=== PATIENT | female | born 1955 | race Caucasian/White ===

== ENCOUNTER 2024-10-03 19:48 | Emergency (ER) | payer MEDICAID ==
[~2024-10-03] VITALS: Ht 162.6 cm; Wt 68.8 kg
[~2024-10-03 19:48] MED LIST: ASPI-1264 PO; LEVO100T PO
[2024-10-03 19:55] VITALS: TEMP 98
--- NOTE | 2024-10-03 20:41 | Physician Documentation ---
History of Present Illness ~ Chief Complaint: Allergic Reaction Stated Complaint: ALLERGIC REACTION Time Seen by MD: 20:17 Medication Reconciliation Allergies: Coded Allergies: Penicillins (Verified Allergy, Severe, RASH,ITCH,SWELLING PAIN SOB, 11/29/15) diphenhydramine (Verified Adverse Reaction, Unknown, NAUSEA HEADACHE DIZZY, 11/29/15) Scheduled Aspirin* (Aspirin*), 325 MG PO Q24H@0830 Levothyroxine Sodium (Synthroid), 1 TAB PO DAILY, (Reported) Physical Exam Vital Signs: Temperature: 98.0, Heart Rate: 86, Respiratory Rate: 16, BP: 149/92, Pulse Oximetry: 97, Weight: 68.800 Oxygen Flow Rate: 0 Progress Results/Orders Results/Orders Vital Signs 10/03/24 19:55 Temp 98.0 Pulse 86 Resp 16 B/P (MAP) 149/92 Pulse Ox 97 O2 Flow Rate 0 Medical Decision Making Findings This patient presents with symptoms running for an allergic reaction per patient. Presentation not consistent with acute anaphylaxis (lack of pulmonary, dermatologic, cardiovascular or GI symptoms, lack of hypotension or exposure to known allergen), angioedema, serum sickness (no recent drug exposure, lacks fevers, arthralgias). No evidence of airway compromise or shock at this time. Patient improved spontaneously before arrival to the emergency department without any interventions. No need for epinephrine, steroids or a 22 blockers at this time. Patient will follow up with her primary care provider. He will return to the emergency department if the symptoms return or she has any additional concerning symptoms that we discussed here today. Differential Dx:Considerations: Include: Anaphylaxis, Angioedema, Bronchospasm, Contact dermatitis, Drug reaction, Hypotension, Latex allergy, Renal failure, Respiratory failure, Shock, Urticaria, Other Departure Disposition: 01 HOME / SELF CARE / HOMELESS Impression: Primary Impression: Resolved erythema Additional Instructions: This patient presents with symptoms running for an allergic reaction per patient. Presentation not consistent with acute anaphylaxis (lack of pulmonary, dermatologic, cardiovascular or GI symptoms, lack of hypotension or exposure to known allergen), angioedema, serum sickness (no recent drug exposure, lacks fevers, arthralgias). No evidence of airway compromise or shock at this time. Patient improved spontaneously before arrival to the emergency department without any interventions. No need for epinephrine, steroids or a 22 blockers at this time. Patient will follow up with her primary care provider. She will return to the emergency department if the symptoms return or she has any additional concerning symptoms that we discussed here today, I return of redness swelling difficulty breathing, difficulty swallowing,lightheadedness, dizziness, or any other concerning symptoms that we discussed here today. Referrals: NO PRIMARY CARE PROVIDER (PCP) Education Educated: Patient Educated regarding: diagnosis, treatment, need for follow up Signature Scribe Signature: A Attestation: Scribed for Lisa Wyman by MICHELE Flores . 10/03/24 20:41 LISA WYMAN Oct 03, 2024 20:41
[2024-10-03 20:44] VITALS: BP 145/90; PULSE 84; RESP 18; O2SAT 99
== END 2024-10-03 20:45 | disposition home or self-care (01) ==
LOC: ER 19:48
DX: T78.40XA Allergy, unspecified, initial encounter (principal); Z88.0 Allergy status to penicillin; X58.XXXA Exposure to other specified factors, initial encounter
CPT/HCPCS: 99282